=== PATIENT | male | born 1985 | race Asian ===

== ENCOUNTER 2016-12-08 18:57 | Emergency (ER) | payer MEDICAID ==
[~2016-12-08] VITALS: Ht 175.3 cm; Wt 52.3 kg
[2016-12-08] MEDS ORDERED: CefTRIAXone SODIUM 1 GM/VIAL IM ONE (20:15)
[2016-12-08] MEDS ORDERED: AZITHROMYCIN 250 MG TABLET PO ONE (20:15)
[2016-12-08] MEDS ORDERED: PENICILLIN G BENZATHINE LA 2,400,000 UNITS/4 ML SYRINGE IM ONE (20:15)
[2016-12-08] MEDS ORDERED: LIDOCAINE HCL/PF 1% 2 ML VIAL IM ONE (20:15)
[2016-12-08 21:00] VITALS: BP 108/56
[2016-12-08] MEDS ORDERED: ACETAMINOPHEN 325 MG TABLET PO ONE (21:00)
== END 2016-12-08 21:49 | disposition home or self-care (01) ==
LOC: EMS 18:59
DX: N34.2 Other urethritis (principal); F17.210 Nicotine dependence, cigarettes, uncomplicated
CPT/HCPCS: 96372; 99284; J0561; J0696; J3490